=== PATIENT | female | born 1955 | race Caucasian/White ===

== ENCOUNTER 2017-07-04 19:38 | Observation (INO) | payer MEDICARE ==
[~2017-07-04] VITALS: Ht 152.4 cm; Wt 80.9 kg
[2017-07-04 19:39] VITALS: BP 186/122
--- OUTSIDE RECORDS SUMMARY | 2017-07-04 19:58 | External Medical Summary Rpt | CCD ---
Author Author , ADEEL Organization ADEEL Address Unknown Phone [email or web address] Immunization Name Date Rout CVX Reac Dose Comm Prov Is Faci e tion ent ider Refu lity Give sed n Infl 11-0 Intr 0.5 Hist D049 No D049 uenz 1-20 amus mL oric 01 01 a 17 cula al Quad r Info rmat W/Pr ion es - Sour ce Unsp ecif ied Tdap 09-0 Intr 115 0.5 Hist MT No MT , 7-20 amus mL oric Adso 14 cula al rbed r Info rmat ion - Sour ce Unsp ecif ied
--- OUTSIDE RECORDS SUMMARY | 2017-07-04 19:58 | External Medical Summary Rpt | CCD ---
Author Author , WOJCIECH JEFFREY Address Unknown Phone Purpose Continuity of Care Document - through 2016
--- OUTSIDE RECORDS SUMMARY | 2017-07-04 19:58 | External Medical Summary Rpt | CCD ---
Author Author , WOJCIECH JEFFREY Address Unknown Phone [email or web address] Purpose Continuity of Care Document - through 2016
--- OUTSIDE RECORDS SUMMARY | 2017-07-04 19:58 | External Medical Summary Rpt ---
Author Author WOJCIECH Mckinney, [employer]ECH [employer] Organization [employer] Address Unknown Phone Unavailable
--- OUTSIDE RECORDS SUMMARY | 2017-07-04 19:58 | External Medical Summary Rpt | CCD ---
Author Author [employer]duent Organization Con[employer] Address Unknown Phone Unavailable Purpose Continuity of Care Document - through 2016
--- OUTSIDE RECORDS SUMMARY | 2017-07-04 19:58 | External Medical Summary Rpt | CCD ---
Author Author , ADEEL Organization ADEEL Address Unknown Phone [email or web address] Immunization Name Date Rout CVX Reac Dose Comm Prov Is Faci e tion ent ider Refu lity Give sed n Infl 11-0 Intr 0.5 Hist D049 No D049 uenz 1-20 amus mL oric 01 01 a 17 cula al Quad r Info rmat W/Pr ion es - Sour ce Unsp ecif ied Tdap 09-0 Intr 115 0.5 Hist HI No HI , 7-20 amus mL oric Adso 14 cula al rbed r Info rmat ion - Sour ce Unsp ecif ied
[2017-07-04 20:02] LABS: LYMPH # 3.7 K/mm3 (0.7-4.5); LYMPH % 31.1 % (10-50.0)
[2017-07-04 20:06] LABS: HEMOGLOBIN 16.4 g/dL (12.2-16.2)
--- NOTE | 2017-07-04 20:31 | Emergency Room Report ---
See Addendum History of Present Illness Time Seen by 1999 Presenting Problem in Triage Pt arrived:Wheelchair Presenting Problem:ABD PAIN SINCE SUNDAY. PT IS TEARFUL AND GUARDING HER UPPER RIGHT QUAD. 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 N Clinical Suspician of Infection? N Mental Status: 1 - Regular (Normal Baseline) Sepsis Risk:Low Sepsis Risk Have you (or family members/close friends) recently traveled outside the [place]? N If Yes, where/when: Have you had exposure to infectious disease within the past month? N TB? Other? Specify: Source patient, RN notes reviewed, family, old records Exam Limitations no limitations Comment onset of rt upper abd pain Cardiac Chest Pain Chest pain indicative of cardiac No Timing/Duration this evening Severity moderate ALLERGIES Coded Allergies: oxycodone (From OXYCONTIN) (07/04/17) Home Medications Reported Medications Oxycodone 10 Mg\[id number] (Oxycodone-Acetaminophen 10-325) 1 TAB PO Q4HP PRN CHRONIC PAIN Clonazepam (Clonazepam 0.5MG) 0.5 MG PO QHS TIZANIDINE HCL (Tizanidine) 4 MG NG QHS Olmesartan Medoxomil (Benicar) 20 MG PO DAILY Celecoxib (Celebrex 50MG) 60 MG PO BID Metoprolol Succinate Xl (Metoprolol ER 25MG) 25 MG PO DAILY HYDROXYZINE HCL (Hydroxyzine) 10 MG PO DAILY History Medical History General CAD? No Angina: No [place]: No Hypertension? Yes Hyperlipidemia? Yes CHF? No DVT? No PE? No COPD? No Asthma? No Anemia? No GERD? Yes Gastric ulcers? No GI Bleed? No Hernia? No Thyroid Problems? No CVA? No Seizures? No Diabetes? No Renal Insuffiency? No End Stage Renal Disease? No UTI? No Stones? No GB Disease: No Arthritis? Yes Migraines? No MRSA? No TB? No Cancer? Yes Site: SKIN CA Immunization Hx DT/Tetanus NOT SURE Pneumonia NEVER Surgical Hx Previous Surgery?Y TUBAL ABLASION OVARIAN CYSTS Family History Family Hx Diabetes Yes CAD Yes Hypertension Yes Hyperlipidemia Yes Cancer Yes TB No Social History Smoking Hx Smoker: Smoker, Status Unknown Tobacco: No Type Cigarettes Alcohol Alcohol: No Drugs none Review of Systems All Other Systems Reviewed and Negative Constitutional denies fever Eyes denies drainage ENT denies: ear discharge, nose pain, epistaxis. Respiratory denies cough, denies shortness of breath, denies wheezing Cardiovascular denies chest pain, denies palpitations, denies syncope Gastrointestinal see HPI, abdominal pain, nausea, denies vomiting Genitourinary denies: dysuria, frequency, hesitancy, hematuria. Musculoskeletal denies back pain, denies joint pain, denies neck pain Skin denies rash Psychiatric/Neurological denies seizure Physical Exam Vital Signs Vital Signs Date Time Temp Pulse Resp B/P Pulse O2 O2 Flow FiO2 Ox Delivery Rate 07/04 2235 107 20 165/81 94 07/04 2136 98.1 105 16 175/84 94 07/04 2045 103 22 154/62 92 07/04 2043 16 07/044 20 07/04 1939 98.0 121 18 186/122 96 - WBC >12,000 or <4,000 or 10% bands? 2 or more SIRS Criteria Met? B/P:154/62 MAP:143 Creatinine >2.0? UA output<0.5ml/kg/hr for 2 hrs? Platelet count >100,000? Lactate >2.0mmol/1? INR >1.2 or PTT > than 60 sec? Evidence of Organ Dysfunction? Provider documented clinical suspician of infection? N Sepsis Criteria Count: 1 Sepsis Risk: Low Sepsis Risk General Appearance no apparent distress Eye Exam - bilateral eye PERRL, bilateral eye EOMI Ear, Nose, Throat normal ENT inspection Neck supple Respiratory Status No: respiratory distress. Lung Sounds bilateral: lungs clear. 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 No Results/Orders Laboratory Tests 07/04/172107: Urine Color YELLOW, Urine Appearance CLEAR, Urine pH 5.5, Ur Specific [place] >= 1.030, Urine Protein NEGATIVE, Urine Ketones NEGATIVE, Urine Blood TRACE-LYSED, Urine Nitrate NEGATIVE, Urine Bilirubin NEGATIVE, Urine Urobilinogen 0.2, Ur Leukocyte Esterase NEGATIVE, Urine RBC OCC, Urine WBC 5-10, Ur Squamous Epith Cells 20-50, Urine Bacteria 2+, Hyaline Casts 20-50, Urine Glucose NEGATIVE 07/04/171944: Sodium 138, Potassium 3.9, Chloride 102, Carbon Dioxide 27, BUN 17, Creatinine 1.1 H, Estimated Creat Clear 59, Estimated GFR (MDRD) 50 L, Glucose 116 H, Calcium 9.7, Total Bilirubin 1.5 H, AST 46 H, ALT 49, Alkaline Phosphatase 154 H, Total Protein 8.5 H, Albumin 4.3, Globulin 4.2 H, Albumin/Globulin Ratio 1.0 L, Amylase 49, Lipase 145, WBC 11.8 H, RBC 5.81 H, Hgb 16.4 H, Hct 49.7 H, MCV 85.5, RDW 13.4, Plt Count 300, MPV 7.0 L, Gran % 59.9, Gran # 7.1, Lymphocytes % 31.1, Monocytes % 5.5, Eosinophils % 2.9, Basophils % 0.6, Lymphocytes # 3.7, Monocytes # 0.7, Eosinophils # 0.3, Basophils # 0.1, PUBS MCHC 32.7, MCH 28.0 Current Medication Orders Sig/Jr Start time Last Medication Dose Route Stop Time Status Admin Hydromorphone HCl 1 MG ONCE ONE 07/04 2045 DCr 07/04 IV 07/04 Promethazine HCl 12.5 MG ONCE ONE 07/04 2045 DC 07/04 IV 07/04 Sodium Chloride 25 ML ONCE ONE 07/04 2045 DC 07/04 IV 07/04 Promethazine HCl 0 .STK-MED ONE 07/04 2038 DC .ROUTE Sodium Chloride 25 ML .STK-MED ONE 07/04 2038 DC IV Hydromorphone HCl 0 .STK-MED ONE 07/04 2037 DCr .ROUTE Ketorolac 30 MG ONCE ONE 07/04 2000 DC 07/04 Tromethamine IV 07/04 Ondansetron HCl 4 MG ONCE ONE 07/04 2000 DC 07/04 IV 07/04 Sodium Chloride 10 ML PRN PRN 07/04 2000 AC IV 07/05 1949 Sodium Chloride 1,000 ML .Q1H1M 07/04 2000 DC 07/04 IV 07/04 Sodium Chloride 10 ML PRN PRN 07/04 2000 AC IV 07/05 1950 Ketorolac 0 .STK-MED ONE 07/04 1950 DC Tromethamine .ROUTE Ondansetron HCl 0 .STK-MED ONE 07/04 1949 DC .ROUTE Sodium Chloride 1,000 ML .STK-MED ONE 07/04 1949 DC IV Orders Procedure Date/time Status DIET-NOTHING BY MOUTH 07/05 B Active Decision to admit 07/04 2233 Active CULTURE, URINE 07/[address] ABD & PELVIS W/O CONTRAST 07/[address] ABD/PELVIS REQ 07/04 1952 Complete IV SALINE LOCK 07/04 1952 Active URINALYSIS/COMPLETE 07/04 1952 Complete LIPASE 07/04 1952 Complete COMPLETE METABOLIC PANEL 07/04 1952 Complete CBC WITH AUTO DIFF 07/04 1952 Complete AMYLASE 07/04 1952 Complete XRAY/CT/US XRAY/CT/US CT abdomen, pelvis CT interpretation by discussed w/radiologist Time results known: 2123 CT Results abnormal (see report) Departure Departure Time of Disposition 2123 Disposition Still a Patient Clinical Impression Primary Impression: Abdominal pain Qualifiers: Abdominal location: right upper quadrant Qualified Code: R10.11 - Right upper quadrant pain Condition STABLE Referrals Crow Samuels MD (Family) discussed with dr aide LIZARRAGA Critical Care Critical Care No at 2242
[2017-07-04] MEDS ORDERED: PERCOCET 10 MG1 EACH PO (20:35)
[2017-07-04] MEDS ORDERED: CLONAZEPAM0.5 M1 PO (20:36)
[2017-07-04] MEDS ORDERED: TIZANIDINE4 MG NG (20:37)
[2017-07-04] MEDS ORDERED: BENICAR20 MG PO (20:38)
[2017-07-04] MEDS ORDERED: CELEBREX50 MG PO (20:39)
[2017-07-04] MEDS ORDERED: METOPROLOL SUCC25 M1 PO (20:40)
[2017-07-04] MEDS ORDERED: Hydroxyzine10 MG PO (20:41)
[2017-07-04 21:15] LABS: URINE BILIRUBIN - DIPSTICK NEGATIVE (NEG); URINE BLOOD TRACE-LYSED (NEG)
[2017-07-04 21:30] LABS: URINE SQUAMOUS CELLS 20-50 #/hpf (0-5)
--- OUTSIDE RECORDS SUMMARY | 2017-07-04 22:39 | External Medical Summary Rpt | CCD ---
Author Author , WOJCIECH Organization WOJCIECH Address Unknown Phone [email or web address] Purpose Continuity of Care Document - 07-04-2017 through 2016 Results Labs Lab Lab Date Result Refere Interp Status Commen Order Detail nces retati t Range on Urinalysis with microscopy (07-04-2017 21:08) Urine 5 - 10 O complet leukocy 017 wbc/hpf ed romana 21:08 count (number /volume ) Urine 0.2 0.2 NEG complet urobili 017 L ed nogen 21:08 E.U./dL detecti on by test str [place] 20-50 0-5 complet s 017 20-50 L ed epithel 21:08 #/hpf ial cells detecti on in u Urine > = 1.005-1 complet specifi 017 1.030 .030 ed c 21:08 gravity measure ment Erythro OCC OCC 0 complet cytes 017 L ed detecti 21:08 rbc/hpf on in urine sedimen t Urine = NEG complet protein 017 NEGATIV ed 21:08 E mg/dL measure ment by automat ed t Urine = 5.5 5.0-8.5 complet pH 017 ed 21:08 Urine NEGATIV NEG complet nitrite 017 E ed 21:08 NEGATIV detecti E L on by test strip Mucus NEGATIV NEG complet detecti 017 E ed on in 21:08 NEGATIV urine E L sedimen t by lig Urine NEGATIV NEG complet ketones 017 E ed 21:08 NEGATIV detecti E L on by mg/dL automat ed romana Hyaline 20-50 NONE complet casts 017 20-50 L ed detecti 21:08 #/lpf on in urine sedimen Glucose = NEG complet ur 017 NEGATIV ed test 21:08 E strip Urine YELLOW YELLOW complet color 017 YELLOW ed 21:08 L Urine NEGATIV NEG complet total 017 E ed bilirub 21:08 NEGATIV in E L detecti on by test Bacteri 2+ 2+ L O complet a 017 ed detecti 21:08 on in urine sedimen t by Urine CLEAR CLEAR complet appeara 017 CLEAR L ed nce 21:08 determi nation Urine TRACE-L NEG complet blood 017 YSED ed detecti 21:08 TRACE-L on YSED L Lipase measurement (07-04-2017 19:45) Lipase = 145 73-393 complet measure 017 U/L ed ment 19:45 Comprehensive metabolic panel (07-04-2017 19:45) Protein = 8.5 6.4-8.2 complet total 017 gm/dL ed ser/chon 19:45 s ALT = 49 12-78 complet (SGPT) 017 U/L ed ser/chon 19:45 s Serum = 46 15-37 complet or 017 U/L ed plasma 19:45 asparta te aminotr ansfera Serum = 138 136-145 complet sodium 017 mmoL/L ed measure 19:45 ment Serum = 3.9 3.5-5.1 complet potassi 017 mmoL/L ed um 19:45 measure ment Serum = 116 74-106 complet or 017 mg/dL ed plasma 19:45 glucose measure ment (mas Serum = 4.2 1.3-3.2 complet globuli 017 gm/dL ed n 19:45 measure ment (mass/v olume) Estimat = 50 59- complet ed 017 ML/MIN ed glomeru 19:45 lar filtrat ion rate (GF Comment: REFERENCE RANGE: >60 ML/MIN/1.73 SQUARE METERS Comment: If this patient is -Latvian, then multiply the Comment: result by 1.210. Estimat = 59 50-200 complet ion of 017 ML/MIN ed creatin 19:45 ine renal clearan ce Serum = 1.1 0.55-1. complet or 017 mg/dL 02 ed plasma 19:45 creatin ine measure ment ( Carbon = 27 21.0-32 complet dioxide 017 mmoL/L .0 ed 19:45 measure ment Serum = 102 98-107 complet or 017 mmoL/L ed plasma 19:45 chlorid e measure ment (mo Serum = 9.7 8.5-10. complet or 017 mg/dL 1 ed plasma 19:45 calcium measure ment (mas Serum = 17 7-18 complet or 017 mg/dL ed plasma 19:45 urea nitroge n measure men Serum = 1.5 0.2-1.0 complet or 017 mg/dL ed plasma 19:45 total bilirub in measure m Serum = 154 46-116 complet or 017 U/L ed plasma 19:45 alkalin e phospha tase john Serum = 4.3 3.4-5.0 complet or 017 gm/dL ed plasma 19:45 albumin measure ment (mas Serum = 1.0 1.1-1.8 complet or 017 ed plasma 19:45 albumin /globul in mass ra Amylase ser/plas (07-04-2017 19:45) Amylase = 49 25-115 complet 017 U/L ed ser/chon 19:45 s CBC w auto diff (07-04-2017 19:45) Blood = 11.8 4.8-10. complet leukocy 017 K/MM3 8 ed romana 19:45 count (number /volume ) Automat = 13.4 11.5-17 complet ed 017 % .5 ed erythro 19:45 cyte distrib ution width Red = 5.81 4.2-5.4 complet blood 017 M/mm3 ed cell 19:45 count Blood = 300 142-424 complet platele 017 K/mm3 ed t count 19:45 Automat = 7.0 7.4-10. complet ed 017 fl 4 ed blood 19:45 platele t mean volume john [place] % = 5.5 % 1.7-9.3 complet 017 ed 19:45 Absolut = 0.7 0.1-1.0 complet e 017 K/mm3 ed monocyt 19:45 e count Automat = 85.5 82.2-97 complet ed 017 fl .8 ed erythro 19:45 cyte mean corpusc ular v Automat = 32.7 31.8-35 complet ed 017 g/dl .4 ed erythro 19:45 cyte mean corpusc ular h Mean = 28.0 27-31.2 complet corpusc 017 pg ed ular 19:45 hemoglo bin (MCH) determ Lymphoc = 31.1 10-50.0 complet yte 017 % ed count, 19:45 blood, automat ed Absolut = 3.7 0.7-4.5 complet e 017 K/mm3 ed lymphoc 19:45 yte count Blood = 16.4 12.2-16 complet hemoglo 017 g/dL .2 ed bin 19:45 measure ment (mass/v olum Blood = 49.7 37.0-47 complet hematoc 017 % .0 ed rit 19:45 (volume fractio n) Granulo = 59.9 37.0-80 complet cyte 017 % .0 ed percent 19:45 age Blood = 7.1 1.8-7.8 complet granulo 017 K/mm3 ed cytes 19:45 automat ed count (numb Automat = 2.9 % 0.1-12. complet ed 017 0 ed blood 19:45 eosinop hils/10 0 leukocy t Automat = 0.3 0.0-0.4 complet ed 017 K/mm3 ed blood 19:45 eosinop hil count Baso % = 0.6 % 0.1-2.0 complet 017 ed 19:45 Automat = 0.1 0-0.2 complet ed 017 K/MM3 ed blood 19:45 basophi l count (count/ vo
--- OUTSIDE RECORDS SUMMARY | 2017-07-04 22:39 | External Medical Summary Rpt | CCD ---
Author Author , WOJCIECH Organization WO[employer] Address Unknown Phone [email or web address] Purpose Continuity of Care Document - 07-04-2017 [...] SQUARE METERS Comment: If this patient is -[place]ian, then multiply the Comment: result by 1.210. [...] blood 19:45 platele t mean volume john [place] % = 5.5 % 1.7-9.3 complet 017 [...]
--- OUTSIDE RECORDS SUMMARY | 2017-07-04 22:39 | External Medical Summary Rpt | CCD ---
Author Author , ADEEL Organization ADEEL Address Unknown Phone [email or web address] Immunization Name Date Rout CVX Reac Dose Comm Prov Is Faci e tion ent ider Refu lity Give sed n Infl 11-0 Intr 0.5 Hist D049 No D049 uenz 1-20 amus mL oric 01 01 a 17 cula al Quad r Info rmat W/Pr ion es - Sour ce Unsp ecif ied Tdap 09-0 Intr 115 0.5 Hist CO No CO , 7-20 amus mL oric Adso 14 cula al rbed r Info rmat ion - Sour ce Unsp ecif ied
--- OUTSIDE RECORDS SUMMARY | 2017-07-04 22:39 | External Medical Summary Rpt | CCD ---
Author Author , ADEEL Organization ADEEL Address Unknown Phone [email or web address] Immunization Name Date Rout CVX Reac Dose Comm Prov Is Faci e tion ent ider Refu lity Give sed n Infl 11-0 Intr 0.5 Hist D049 No D049 uenz 1-20 amus mL oric 01 01 a 17 cula al Quad r Info rmat W/Pr ion es - Sour ce Unsp ecif ied Tdap 09-0 Intr 115 0.5 Hist MD No MD , 7-20 amus mL oric Adso 14 cula al rbed r Info rmat ion - Sour ce Unsp ecif ied
--- OUTSIDE RECORDS SUMMARY | 2017-07-04 22:40 | External Medical Summary Rpt ---
Author Author WOJCIECH Mckinney, [employer]ECH [employer] Organization [employer] Address Unknown Phone Unavailable Results Amylase [Enzymatic activity/volume] in Serum or Plasma Observa Value Referen Units Interpr Notes Date tion ce etation Range Amylase 25 - 115 U/L Normal No Jul 04 [Enzymati informati 2017 7:45 c on in PM activity/ source volume] data in Serum or Plasma Comprehensive metabolic 2000 panel in Serum or Plasma Observa Value Referen Units Interpr Notes Date tion ce etation Range Albumin/G 1.1 - 1.8 No Low No Jul 04 lobulin informati informati 2016 7:45 [Mass on in on in PM ratio] in source source Serum or data data Plasma Albumin 3.4 - 5.0 gm/dL Normal No Jul 04 [Mass/vol informati 2016 7:45 ume] in on in PM Serum or source Plasma data Alkaline 46 - 116 U/L High No Jul 04 phosphata informati 2016 7:45 se on in PM [Enzymati source c data activity/ volume] in Serum or Plasma Bilirubin 0.2 - 1.0 mg/dL High No Jul 04 .total informati 2016 7:45 [Mass/vol on in PM ume] in source Serum or data Plasma Urea 7 - 18 mg/dL Normal No Jul 04 nitrogen informati 2016 7:45 [Mass/vol on in PM ume] in source Serum or data Plasma Calcium 8.5 - mg/dL Normal No Jul 04 [Mass/vol 10.1 informati 2016 7:45 ume] in on in PM Serum or source Plasma data Chloride 98 - 107 mmoL/L Normal No Jul 04 [Moles/vo informati 2016 7:45 lume] in on in PM Serum or source Plasma data Carbon 21.0 - mmoL/L Normal No Jul 04 dioxide, 32.0 informati 2017 7:45 total on in PM [Moles/vo source lume] in data Serum or Plasma Creatinin 0.55 - mg/dL High No Jul 04 e 1.02 informati 2016 7:45 [Mass/vol on in PM ume] in source Serum or data Plasma Creatinin 50 - 200 ML/MIN Normal No Jul 04 e renal informati 2016 7:45 clearance on in PM source predicted data by Cockcroft -Gault formula Estimated 59- ML/MIN Low REFERENCE Jul 04 RANGE: 2016 7:45 glomerula >60 PM r ML/MIN/1. filtratio 73 SQUARE n rate METERSIf (GF this patient is -A merican, then multiply theresult by 1.210. Globulin 1.3 - 3.2 gm/dL High No Jul 04 [Mass/vol informati 2016 7:45 ume] in on in PM Serum source data Glucose 74 - 106 mg/dL High No Jul 04 [Mass/vol informati 2016 7:45 ume] in on in PM Serum or source Plasma data Potassium 3.5 - 5.1 mmoL/L Normal No Jul 04 inform2016 7:45 [Moles/vo on in PM lume] in source Serum or data Plasma Sodium 136 - 145 mmoL/L Normal Jul 04 [Moles/vo ati 2016 7:45 lume] in on in PM Serum or source Plasma data Aspartate 15 - 37 U/L High No Jul 04 informati 2016 7:45 aminotran on in PM sferase source [Enzymati data c activity/ volume] in Serum or Plasma Alanine 12 - 78 U/L Normal No Jul 04 aminotran 2016 7:45 sferase on in PM [Enzymati source c data activity/ volume] in Serum or Plasma Protein 6.4 - 8.2 gm/dL High Jul 04 [Mass/vol informati 2016 7:45 ume] in on in PM Serum or source Plasma data Lipase [Enzymatic activity/volume] in Serum or Plasma Observa Value Referen Units Interpr Notes Date tion ce etation Range Lipase 73 - 393 U/L Normal No Jul 04 [Enzymati informati 2016 7:45 c on in PM activity/ source volume] data in Serum or Plasma CBC W Auto Differential panel in Blood Observa Value Referen Units Interpr Notes Date tion ce etation Range Basophils 0 - 0.2 K/MM3 Normal No Jul 04 inform2016 7:45 [#/volume on in PM ] in source Blood by data Automated count Basophils 0.1 - 2.0 % Normal No Nov 8 /100 informati 2016 7:45 leukocyte on in PM s in source Blood by data Automated count Eosinophi 0.0 - 0.4 K/mm3 Normal No Jun 8 ls informati 2016 7:45 [#/volume on in PM ] in source Blood by data Automated count Eosinophi 0.1 - % Normal No Jul 04 ls/100 12.0 informati 2016 7:45 leukocyte on in PM s in source Blood by data Automated count Granulocy 1.8 - 7.8 K/mm3 Normal No Jun 8 romana informati 2016 7:45 [#/volume on in PM ] in source Blood by data Automated count Granulocy 37.0 - % Normal No Jul 04 romana/100 80.0 informati 2016 7:45 leukocyte on in PM s in source Blood by data Automated count Hematocri 37.0 - % High No Jul 04 t [Volume 47.0 informati 2016 7:45 on in PM Fraction] source of Blood data Hemoglobi 12.2 - g/dL High No Jul 04 n 16.2 informati 2016 7:45 [Mass/vol on in PM ume] in source Blood data Lymphocyt 0.7 - 4.5 K/mm3 Normal No Jul 04 es informati 2016 7:45 [#/volume on in PM ] in source Unspecifi data ed specimen by Automated count Lymphocyt 10 - 50.0 % Normal No Jul 04 es 2016 7:45 [#/volume on in PM ] in source Unspecifi data ed specimen by Automated count Erythrocy 27 - 31.2 pg Normal No Jul 04 te mean informati 2016 7:45 corpuscul on in PM ar source hemoglobi data n [Entitic mass] Erythrocy 31.8 - g/dl Normal No Jul 04 te mean 35.4 informati 2016 7:45 corpuscul on in PM ar source hemoglobi data n concentra tion [Mass/vol ume] by Automated count Erythrocy 82.2 - fl Normal No Jul 04 te mean 97.8 informati 2016 7:45 corpuscul on in PM ar volume source [Entitic data volume] by Automated count Monocytes 0.1 - 1.0 K/mm3 Normal No Jul 04 informati 2016 7:45 [#/volume on in PM ] in source Blood by data Automated count Monocytes 1.7 - 9.3 % Normal No Jul 04 informati 2017 7:45 leukocyte on in PM s in source Blood by data Automated count Platelet 7.4 - fl Low Jul 04 mean 10.4 informati 2016 7:45 volume on in PM [Entitic source volume] data in Blood by Automated count Platelets 142 - 424 K/mm3 Normal No Jul 04 informati 2016 7:45 [#/volume on in PM ] in source Blood data Erythrocy 4.2 - 5.4 M/mm3 High No Jul 04 romana informati 2016 7:45 [#/volume on in PM ] in source Amniotic data fluid Erythrocy 11.5 - % Normal Jul 04 te 17.5 informati 2016 7:45 distribut on in PM ion width source [Entitic data volume] by Automated count Leukocyte 4.8 - K/MM3 High No Jul 04 s 10.8 informati 2016 7:45 [#/volume on in PM ] in source Blood data
--- OUTSIDE RECORDS SUMMARY | 2017-07-04 22:40 | External Medical Summary Rpt ---
Author Author WOJCIECH Mckinney, WOJCICEH [employer] Organization [employer] Address Unknown Phone [...]
[2017-07-04 23:16] VITALS: BP 159/78
[2017-07-05 04:17] VITALS: BP 140/78
--- NOTE | 2017-07-05 05:34 | RADIOLOGY REPORT PS360 ---
CT ABD PELVIS W/O CONTRAST CLINICAL INDICATION: Right upper quadrant abdominal pain ABD PAIN ORDERING PHYSICIAN: Crow Samuels MD PATIENT AGE: 62 years COMPARISON: 04/25/2008 TECHNIQUE: Axial images obtained with sagittal and coronal reformats. PROCEDURE: Oral Contrast: None IV Contrast: None . FINDINGS: There is patchy density in the left lower lobe and inferior lingula consistent with atelectasis and/or infiltrate. Coronary artery calcifications are present Prior cholecystectomy. No biliary dilatation. Spleen, adrenal glands and pancreas have an unremarkable unenhanced appearance. 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 No obstructing renal or ureteral calculi. No hydronephrosis. There is a 2 x 1.6 cm exophytic soft tissue density projecting off of the superior lateral aspect of the left kidney. This is somewhat more dense somewhat one would expect for simple cyst. Ultrasound suggested to determine cystic or solid nature. There are a few small retroperitoneal lymph nodes. Tiny umbilical hernia containing fat. Unremarkable appendix. Mild diverticulosis of the descending and sigmoid colon without evidence of diverticulitis. No intestinal obstruction or free air. No acute bony anomalies. No pelvic mass or focal inflammatory change. Urinary bladder has an unremarkable appearance. IMPRESSION: 1. 2 cm isodense mass in the lateral aspect of the left kidney more dense than what one would expect for simple cyst. Differential diagnosis includes a complex cyst or neoplasm. Suggest ultrasound for further evaluation. 2. Atelectasis and/or infiltrate within the lingula and left lower lobe 3. Colonic diverticulosis without diverticulitis. 4. Otherwise negative CT abdomen pelvis without contrast
[2017-07-05 07:23] LABS: LYMPH # 3.1 K/mm3 (0.7-4.5); LYMPH % 30.7 % (10-50.0)
[2017-07-05 07:25] LABS: HEMOGLOBIN 13.7 g/dL (12.2-16.2)
--- NOTE | 2017-07-05 07:49 | PHARMACY CLINIC NOTE ---
Patient Demographics Patient Demographics Admission date: 07/04/17 Date: 07/05/17 Time: 0749 Allergies Coded Allergies: oxycodone (From OXYCONTIN) (07/04/17) HEIGHT- FT: 5 IN: 0.00 K.658 VTE General Information Labs: Laboratory Tests 07/05 1945 Hematology Hgb (12.2 - 16.2 g/dL) 13.7 16.4 H Hct (37.0 - 47.0 %) 41.9 49.7 H Plt Count (142 - 424 K/mm3) 220 300 Disclaimer The following section includes nursing documentation that has been pulled in for pharmacy review. Patient's VTE score: 0 Patient's VTE Risk: VERY LOW RISK Clinical trial participant? No VTE prophylaxis NQF [id number] VTE prophylaxis ordered? Yes Type of prophylaxis/treatment: ALISSA at 0749
[2017-07-05] MEDS ORDERED: HYDROXYZINE HCL25 M1 PO (08:09)
[2017-07-05] MEDS ORDERED: DULOXETINE60 MG PO (08:10)
--- NOTE | 2017-07-05 08:54 | HISTORY AND PHYSICAL REPORT ---
See Addendum History and Physical (FCA) Date of admission: 07/04/17 Chief complaint: abdominal pain History: History of Present Illness: Mr. Mendieta is a 62-year-old female with a history of hypertension, hyperlipidemia, and arthritis. She states approximately 3 days ago she began having RIGHT upper quadrant abdominal pain. The pain has continued to worsen over the past few days and became so bad last night that she presented to the emergency room. She was evaluated in the emergency room and a CT scan revealed nothing acute on the RIGHT side of the abdomen. She did have a mass on the LEFT kidney. She was given pain medication in the emergency room, but her pain was not controlled. She was therefore admitted with intractable pain for further evaluation and treatment. Past Medical History: Medical History: CAD? No Angina: No NE: No Hypertension? Yes Hyperlipidemia? Yes CHF? No DVT? No PE? No COPD? No Asthma? No Anemia? No GERD? Yes Gastric ulcers? No GI Bleed? No Hernia? No Thyroid Problems? No CVA? No Seizures? No Diabetes? No Renal Insuffiency? No UTI? No Stones? No GB Disease: No Arthritis? Yes Migraines? No MRSA? No TB? No Cancer? Yes Site: SKIN CA Surgical history: Previous Surgery?Y TUBAL ABLASION OVARIAN CYSTS GALL BLADDER Medications: Reported Medications HYDROXYZINE HCL (Hydroxyzine HCl) 25 MG PO TID #90 DULOXETINE HCL (Duloxetine) 60 MG PO BID #60 Oxycodone 10 Mg\[id number] (Oxycodone-Acetaminophen 10-325) 1 TAB PO Q4HP PRN CHRONIC PAIN Clonazepam (Clonazepam 0.5MG) 0.5 MG PO QHS TIZANIDINE HCL (Tizanidine) 4 MG NG QHS Olmesartan Medoxomil (Benicar) 20 MG PO DAILY Celecoxib (Celebrex 50MG) 60 MG PO BID Metoprolol Succinate Xl (Metoprolol ER 25MG) 25 MG PO DAILY Allergies: Coded Allergies: oxycodone (From OXYCONTIN) (07/04/17) Family History: Family history: Postive for: CAD, DM, HTN. Social History: Smoking Hx Tobacco: No Smoker: Never Smoker Type: N/A Packs/day: N/A Are you exposed to second hand No Alcohol: Alcohol: No Hx of Drug Use: Drug Use? No Review of Systems: Constitutional Positive for: fatigue, lethargy, malaise, weak. ENT No: nasal congestion, sore throat. Cardiovascular No: chest pain, edema, palpitations. Respiratory No: shortness of air, productive cough (sputum), wheezing. GI Positive for: abdominal pain (RUQ). No: constipation, diarrhea, nausea, vomitting. (female) No: frequency, hematuria. Neurological Positive for: headache, weakness. No: dizziness, syncope. Musculoskeletal No: extremity pain, joint pain, myalgias. Physical Exam: Vital signs: 1ST Vital Signs Result Date Time Pulse Ox 96 07/04 1939 B/P 186/122 07/04 1939 Temp 98.0 07/04 1939 Pulse 121 07/04 1939 Resp 18 07/04 1939 O2 Delivery ROOM AIR 07/04 2316 Exam: General appearance: alert, awake, appears to be in pain Eyes: EOM's w/normal ROM, PERRLA ENT: mucous membranes moist, nose normal, pharynx normal Neck: non-tender, full range of motion, supple Cardiovascular: regular rate & rhythm Respiratory: clear to auscultation ABD: non-distended, normal bowel sounds, no rebound, soft, ttp and guarding in the RUQ Extremities: no peripheral edema Musculoskeletal: equal muscle strength, motor intact, sensation intact Skin: normal color Neuro: normal mood/affect, oriented, speech clear Lab data: Labs: Laboratory Tests 07/05/17 0612: Sodium 140, Potassium 4.0, Chloride 108 H, Carbon Dioxide 25, BUN 15, Creatinine 0.8, Estimated Creat Clear 86, Estimated GFR (MDRD) 72, Glucose 102, Calcium 8.8, WBC 10.1, RBC 4.83, Hgb 13.7, Hct 41.9, MCV 86.8, RDW 13.4, Plt Count 220, MPV 7.3 L, Gran % 59.5, Gran # 6.0, Lymphocytes % 30.7, Monocytes % 6.4, Eosinophils % 2.8, Basophils % 0.6, Lymphocytes # 3.1, Monocytes # 0.6, Eosinophils # 0.3, Basophils # 0.1, PUBS MCHC 32.9, MCH 28.5 07/04/172107: Urine Color YELLOW, Urine Appearance CLEAR, Urine pH 5.5, Ur Specific [place] >= 1.030, Urine Protein NEGATIVE, Urine Ketones NEGATIVE, Urine Blood TRACE-LYSED, Urine Nitrate NEGATIVE, Urine Bilirubin NEGATIVE, Urine Urobilinogen 0.2, Ur Leukocyte Esterase NEGATIVE, Urine RBC OCC, Urine WBC 5-10, Ur Squamous Epith Cells 20-50, Urine Bacteria 2+, Hyaline Casts 20-50, Urine Glucose NEGATIVE 07/04/171944: Sodium 138, Potassium 3.9, Chloride 102, Carbon Dioxide 27, BUN 17, Creatinine 1.1 H, Estimated Creat Clear 59, Estimated GFR (MDRD) 50 L, Glucose 116 H, Calcium 9.7, Total Bilirubin 1.5 H, AST 46 H, ALT 49, Alkaline Phosphatase 154 H, Total Protein 8.5 H, Albumin 4.3, Globulin 4.2 H, Albumin/Globulin Ratio 1.0 L, Amylase 49, Lipase 145, WBC 11.8 H, RBC 5.81 H, Hgb 16.4 H, Hct 49.7 H, MCV 85.5, RDW 13.4, Plt Count 300, MPV 7.0 L, Gran % 59.9, Gran # 7.1, Lymphocytes % 31.1, Monocytes % 5.5, Eosinophils % 2.9, Basophils % 0.6, Lymphocytes # 3.7, Monocytes # 0.7, Eosinophils # 0.3, Basophils # 0.1, PUBS MCHC 32.7, MCH 28.0 Microbiology 07/04 2108 URINE CC: Urine Culture - RES Radiology results: Results: CT abd/pelvis 1. 2 cm isodense mass in the lateral aspect of the left kidney more dense than what one would expect for simple cyst. Differential diagnosis includes a complex cyst or neoplasm. Suggest ultrasound for further evaluation. 2. Atelectasis and/or infiltrate within the lingula and left lower lobe 3. Colonic diverticulosis without diverticulitis. 4. Otherwise negative CT abdomen pelvis without contrast Diagnosis(es): 1. Abdominal pain Status: Acute 2. Hyperbilirubinemia Status: Acute 3. Kidney mass Status: Acute 4. Hypertension 5. Hyperlipidemia 6. Chronic pain Plan: No findings on CT to explain abdominal pain. Her bilirubin was elevated. Will recheck this today. Amylase and lipase were normal. There was a mass on the left kidney, however she has no pain on that side. Will discuss a possible U/S of the mass with Dr. Samuels. Will discuss further testing with Dr. Samuels. at [phone] at [phone]
[2017-07-05 11:00] VITALS: BP 143/73
--- NOTE | 2017-07-05 15:24 | CONSULT NOTE-UROLOGY ---
Urology Initial Visit Date of Visit: 07/05/17 HPI/Chief Complaint: Referring provider: 62/F Presenting problem: Length of time pt has had problem: Person attending patient for this visit: Patient is a 62-year-old white female referred from Dr. Samuels for a left-sided upper pole renal lesion. Patient was admitted to the hospital with abdominal pain primarily right-sided. CT scan showed a 2 cm LEFT upper pole renal mass. Contrast study was not obtained. CT scan was reviewed and the mass is suspicious and further imaging is recommended. Problem List: 1. Kidney mass Past Medical History Arthritis? Y Diabetes? N Hyperlipedemia? Y Hypertension? Y Heart Problems? [place]? N SOA? Asthma? N Lung Disease? COPD? N TB? N Anemia? N Bleeding Disorder? Cancer? Y Radiation Tx? Hoarsness? Thyroid Problems? N Ulcers? Y Kidney Disease? Liver Disease? Glaucoma? Seizures? N CVA? N Immune Disease? HIV? Trouble w/anesthesia? Abn PSA? Prostate Biopsy? Sexual Dysfunction? Abn Periods? Female Hormone Problems? Uterus/Ovary Problems? ? : Para: Control? Type of BC: Surgical & Social History: Previous Surgery?Y TUBAL ABLASION OVARIAN CYSTS GALL BLADDER Tobacco Use:N Type:N/A Packs/day:N/A If No, have you ever used and quit how long ago? Alcohol Use: Marital Status: Occupation: Family History: Anemia? Arthritis? Asthma? TB?N Cancer?Y Bleeding Troubles? Hyperlipidemia?Y Diabetes?Y COPD? Glaucoma? [place]? Heart Problems? HIV? Hypertension?Y Hoarsness? Immune Disease? Kidney Disease? Liver Disease? Lung Disease? Radiation Tx? Seizures? Shortness of Breath? Ulcers? CVA? Thyroid Problems? Trouble w/Anes? Any men in family ever diagnosed with prostate cancer? Relationship of this person: Current Home Medications Reported Medications DULOXETINE HCL (Duloxetine) 60 MG PO BID #60 Oxycodone 10 Mg\Pptqvullfr332 (Oxycodone-Acetaminophen 10-325) 1 TAB PO Q4HP PRN CHRONIC PAIN Clonazepam (Clonazepam 0.5MG) 0.5 MG PO QHS TIZANIDINE HCL (Tizanidine) 4 MG NG QHS Olmesartan Medoxomil (Benicar) 20 MG PO DAILY Metoprolol Succinate Xl (Metoprolol ER 25MG) 25 MG PO DAILY Allergies: Coded Allergies: oxycodone (From OXYCONTIN) (07/04/17) Review of Systems: Constitutional: Positive for: fatigue. GI: Positive for: GERD. Musculoskeletal: Positive for: lumbar pain. Vital Signs/Wt/Labs Weight -LB:169 OZ:0 K.658 Method:Bed Scales Height -FT:5 IN:0 CM:152.40 BMI:33.0 Vital Signs Date Time Temp Pulse Resp B/P Pulse O2 O2 Flow FiO2 Ox Delivery Rate 07/05 1318 20 07/05 0841 20 07/05 0417 97.8 84 20 140/78 95 ROOM AIR 07/05 0401 20 07/04 2316 104 07/04 231 97.6 104 18 159/78 07/04 231 97.6 104 18 159/78 94 ROOM AIR 07/04 231 93 ROOM AIR 07/04 2302 98.1 103 16 180/77 93 07/04 2235 107 20 165/81 94 07/04 213 98.1 105 16 175/84 94 07/04 2045 103 22 154/62 92 07/04 2043 16 07/04 1954 20 07/04 193 98.0 121 18 186/122 96 Color: Appearance Glucose: Ketone: Bilirubin: Sp.[place]: pH: Protein: Urobilinogen: Blood: Nitrite: Leukocytes: Urine collection method? Residual (ml): Laboratory Tests 07/05/17 0950: Sodium 139, Potassium 4.1, Chloride 108 H, Carbon Dioxide 25, BUN 14, Creatinine 0.8, Estimated Creat Clear 86, Estimated GFR (MDRD) 72, Glucose 89, Calcium 8.7, Total Bilirubin 1.4 H, AST 34, ALT 38, Alkaline Phosphatase 120 H , Total Protein 6.6, Albumin 3.3 L, Globulin 3.3 H, Albumin/Globulin Ratio 1.0 L, Amylase 38, Lipase 115 07/05/17 0612: Sodium 140, Potassium 4.0, Chloride 108 H, Carbon Dioxide 25, BUN 15, Creatinine 0.8, Estimated Creat Clear 86, Estimated GFR (MDRD) 72, Glucose 102, Calcium 8.8, WBC 10.1, RBC 4.83, Hgb 13.7, Hct 41.9, MCV 86.8, RDW 13.4, Plt Count 220, MPV 7.3 L, Gran % 59.5, Gran # 6.0, Lymphocytes % 30.7, Monocytes % 6.4, Eosinophils % 2.8, Basophils % 0.6, Lymphocytes # 3.1, Monocytes # 0.6, Eosinophils # 0.3, Basophils # 0.1, PUBS MCHC 32.9, MCH 28.5 07/04/172107: Urine Color YELLOW, Urine Appearance CLEAR, Urine pH 5.5, Ur Specific [place] >= 1.030, Urine Protein NEGATIVE, Urine Ketones NEGATIVE, Urine Blood TRACE-LYSED, Urine Nitrate NEGATIVE, Urine Bilirubin NEGATIVE, Urine Urobilinogen 0.2, Ur Leukocyte Esterase NEGATIVE, Urine RBC OCC, Urine WBC 5-10, Ur Squamous Epith Cells 20-50, Urine Bacteria 2+, Hyaline Casts 20-50, Urine Glucose NEGATIVE 07/04/171944: Sodium 138, Potassium 3.9, Chloride 102, Carbon Dioxide 27, BUN 17, Creatinine 1.1 H, Estimated Creat Clear 59, Estimated GFR (MDRD) 50 L, Glucose 116 H, Calcium 9.7, Total Bilirubin 1.5 H, AST 46 H, ALT 49, Alkaline Phosphatase 154 H, Total Protein 8.5 H, Albumin 4.3, Globulin 4.2 H, Albumin/Globulin Ratio 1.0 L, Amylase 49, Lipase 145, WBC 11.8 H, RBC 5.81 H, Hgb 16.4 H, Hct 49.7 H, MCV 85.5, RDW 13.4, Plt Count 300, MPV 7.0 L, Gran % 59.9, Gran # 7.1, Lymphocytes % 31.1, Monocytes % 5.5, Eosinophils % 2.9, Basophils % 0.6, Lymphocytes # 3.7, Monocytes # 0.7, Eosinophils # 0.3, Basophils # 0.1, PUBS MCHC 32.7, MCH 28.0 Microbiology Date/Time Procedure - Status Source Growth 07/04 2108 Urine Culture - RES URINE CC Objective: Moderately obese white female in some moderate and episodic right-sided abdominal pain Pupils equal round reactive to light Neck supple symmetric Poor respiratory effort Abdomen soft tender RIGHT lower quadrant Alert and oriented 3 Impression/Plan: 62-year-old white female with a 2 cm LEFT renal lesion. Further imaging is recommended and CT scan with IV contrast is advisable. I discussed with Dr. Samuels and he is going to order this and patient will follow with me next week to discuss the findings. at 1529
--- NOTE | 2017-07-05 15:32 | RADIOLOGY REPORT PS360 ---
US [id number] HISTORY: Left renal mass CT shows left renal lesion ORDERING PHYSICIAN: Crow Samuels MD PATIENT AGE: 62 years COMPARISON: CT scan of 07/04/2017 FINDINGS: RIGHT KIDNEY:Unremarkable. Normal size and echogenicity. No hydronephrosis. 8 x 3 x 5 cm. No hydronephrosis LEFT KIDNEY:8 x 4 x 5 cm.. A 2 cm isodense lesion involves the superior lateral aspect the left kidney. This does not represent a cyst appearing solid in nature. Neoplasm is a consideration. OTHER FINDINGS: No other pertinent findings IMPRESSION: 2 cm left renal lesion does appear solid. Neoplasm is considered.
[2017-07-05 16:19] VITALS: BP 143/73
--- NOTE | 2017-07-05 16:50 | CONSULT NOTE ---
See Addendum Standard Demographics Patient Demo Date of Consultation: 07/05/17 Referring Provider: Amber Samuels MD Reason for Consultation: abdominal pain PRIMARY DIAGNOSIS: ABDOMINAL PAIN Allergies: Coded Allergies: oxycodone (From OXYCONTIN) (07/04/17) History of Present Illness Chief Complaint: Abdominal pain History of Present Illness: This is a 62-year-old female seen in consultation from Dr. Samuels for evaluation regarding abdominal pain. She presented to the emergency department overnight with a 3 day history of severe pain in the RIGHT upper quadrant. She describes the pain as "sharp and crampy". She states that she has "a bad spasm feel". Severity 5-10 out of 10. The pain has been fairly constant with exacerbations lasting "a few seconds to a few minutes". Evaluation has included a CT scan without contrast that revealed no abnormality in the RIGHT upper quadrant. She is status post cholecystectomy. A tiny umbilical hernia with a small amount of contained fat was noted. Mild diverticulosis was also seen. A 2 cm exophytic lesion of the LEFT kidney was noted and follow-up ultrasound reveals this lesion to be solid. The urology service has been consulted and has seen the patient and plans further evaluation and management as an outpatient. In addition, a LEFT lower lobe density consistent with possible atelectasis versus infiltrate was noted. The patient states that she had a colonoscopy about 5-6 years ago. She states that she is "pretty much due for another colonoscopy now". Past Medical History Reports: hypertension. Denies: CAD. Surgical History Previous Surgery?Y TUBAL ABLASION OVARIAN CYSTS GALL BLADDER Allergies Coded Allergies: oxycodone (From OXYCONTIN) (07/04/17) Medications: Reported Medications DULOXETINE HCL (Duloxetine) 60 MG PO BID #60 Oxycodone 10 Mg\\[id number] (Oxycodone-Acetaminophen 10-325) 1 TAB PO Q4HP PRN CHRONIC PAIN Clonazepam (Clonazepam 0.5MG) 0.5 MG PO QHS TIZANIDINE HCL (Tizanidine) 4 MG NG QHS Olmesartan Medoxomil (Benicar) 20 MG PO DAILY Metoprolol Succinate Xl (Metoprolol ER 25MG) 25 MG PO DAILY Additional medical history: Hyperlipidemia Arthritis Family history Postive for: HTN. Smoking Hx Tobacco: No Smoker: Never Smoker Type: N/A Packs/day: N/A Are you/the child exposed to second-hand smoke: No Alcohol Alcohol: No Hx of Drug Use Drug Use? No Review of Systems Constitutional No: recent weight loss. Skin No: bruising. Immune/allergy No: anaphalaxis. Eyes No: discharge. ENT No: nose bleed. Respiratory No: dyspnea on exertion. Cardiovascular No: palpitations. GI No: diarrhea, dysphagia, hematemeis, hematochezia, melena, nausea, vomitting. (female) No: hematuria. Musculoskeletal No: thoracic pain. Heme No: petechia. Endocrine No: polydipsia. Neurological No: change in LOC. Psychiatric No: anxious. Physical Exam VS/I&O Vital Signs Date Time Temp Pulse Resp B/P Pulse O2 O2 Flow FiO2 Ox Delivery Rate 07/05 161 98.3 78 20 143/73 91 ROOM AIR 07/05 1318 20 07/05 0841 20 07/05 0417 97.8 84 20 140/78 95 ROOM AIR 07/05 0401 20 07/04 2316 104 07/04 231 97.6 104 18 159/78 07/04 231 97.6 104 18 159/78 94 ROOM AIR 07/04 2316 93 ROOM AIR 07/04 2302 98.1 103 16 180/77 93 07/04 2235 107 20 165/81 94 07/04 2136 98.1 105 16 175/84 94 07/04 2045 103 22 154/62 92 07/04 2043 16 07/04 1954 20 07/04 1939 98.0 121 18 186/122 96 I&O 07/05 0700 Intake Total 1600 Output Total Balance 1600 Intake, IV 1600 Patient 76.658 kg Weight Exam General appearance alert, oriented Respiratory no distress Cardiovascular regular rate and rhythm Abdomen soft (+ RUQ TTP) Findings/Data WBC 10.1 Hemoglobin 13.7, hematocrit 41.9, platelet count 220 Alkaline phosphatase 120 (154 upon admission) Bilirubin 1.4 (1.5 on admission) Amylase 38, lipase 115 Plan Plan: Impression: RIGHT upper quadrant pain and tenderness Mild hyperbilirubinemia without obvious biliary dilatation on CT scan LEFT renal lesion (ongoing urology evaluation) Plan: Follow-up further urology evaluation and follow-up CT scan with contrast as per urology recommendations as this will potentially show more detail in and around the RIGHT upper quadrant Hepatitis panel (pending) Follow-up repeat liver function tests (pending) Consider gastroenterology consultation secondary to RIGHT upper quadrant pain and hyperbilirubinemia Esophagogastroduodenoscopy (currently planned for tomorrow) Colonoscopy in the near future (either by the surgical service or by gastroenterology) Continue Hyoscyamine Begin Ativan for improved treatment of possible spasm Begin Toradol at [phone]
[2017-07-05 20:03] VITALS: BP 164/59
[2017-07-05 20:30] VITALS: BP 164/59
--- NOTE | 2017-07-05 21:41 | RADIOLOGY REPORT PS360 ---
CTA ABD/PELVIS HISTORY: Follow-up left renal mass, solid mass on ultrasound 2CM MASS LATERAL ASPECT OF LT KIDNEY ORDERING PHYSICIAN: Crow Samuels MD PATIENT AGE: 62 years TECHNIQUE: Helical acquisition obtained following the intravenous administration of 100 mL of Isovue 370. Immediate and delayed images are obtained. Axial, sagittal, and coronal reformatted images are generated and reviewed. COMPARISON: Ultrasound of the same day, unenhanced CT scan of 07/04/2017 FINDINGS: Vasculature: Aorta: Diffuse atheromatous changes of the aortoiliac vessels. Atherosclerotic calcification is noted at the bronchi of the celiac artery. The SMA has an unremarkable appearance. The PAUL is patent. Mild atheromatous changes involve the renal arteries without stenotic lesion apparent. There is a single artery to each kidney. Prominent collateral vessels are present along the inferior and medial aspect of the spleen. The umbilical vein is recanalized near the region of the portal vein. These findings may be seen with portal hypertension. Atelectatic changes are present in the lung bases slightly greater on the left. Fluid-filled distal esophagus noted consistent with reflux. The liver, spleen, adrenal glands, pancreas, and right kidney have an unremarkable appearance. There has been prior cholecystectomy. There is mild biliary dilatation which may be related to postcholecystectomy state. There is a 2.2 x 2 x 1.7 cm complex left renal mass located in the mid upper pole the left kidney laterally mildly exophytic. This appears solid in nature with early peripheral enhancement. This is suspicious for neoplasm/renal cell carcinoma. The left renal vein is normal in caliber. No large peritoneal adenopathy. There is diverticulosis of the colon without evidence of diverticulitis. The appendix has an unremarkable appearance. No acute bony anomalies. IMPRESSION: 1. Solid 2 cm left renal mass with early peripheral enhancement suspicious for neoplasm/renal cell carcinoma. 2. Other nonacute findings as described above. 3. Atheromatous changes of the aorta and iliac vessels as described above
[2017-07-06] VITALS (7 sets, daily range): BP systolic 123–156; BP diastolic 67–78
--- NOTE | 2017-07-06 07:01 | SURGEON PROGRESS NOTE ---
See Addendum Subjective data Subjective data: Pain essentially unchanged. Objective data Vitals,I&O,and Labs: Vital signs, intake and output,and available lab data for the last 24 hours is as noted below. Vital Signs Date Time Temp Pulse Resp B/P Pulse O2 O2 Flow FiO2 Ox Delivery Rate 07/06 0435 20 07/06 0433 20 07/06 0419 98.3 75 20 149/67 93 ROOM AIR 07/05 2313 18 07/05 2215 18 07/05 2030 98.0 80 18 164/59 92 07/05 2003 98.0 80 18 164/59 92 ROOM AIR 07/05 1648 20 07/05 1645 20 07/05 1619 98.3 78 20 143/73 91 ROOM AIR 07/05 1318 20 07/05 1100 98.3 78 20 143/73 91 07/05 0841 20 07/05 1500 07/05 2300 07/06 0700 Intake Total 600 389 Output Total Balance 600 389 Intake, IV 389 Intake, Oral 600 Laboratory Tests Test Result Date Time Chemistry Sodium (mmoL/L) 139 07/05 950 Potassium (mmoL/L) 4.1 07/05 950 Chloride (mmoL/L) 108 07/05 950 Carbon Dioxide (mmoL/L) 25 07/05 950 BUN (mg/dL) 14 07/05 950 Creatinine (mg/dL) 0.8 07/05 950 Estimated Creat Clear (ML/MIN) 86 07/05 950 Estimated GFR (MDRD) (ML/MIN) 72 07/05 950 Glucose (mg/dL) 89 07/05 950 Calcium (mg/dL) 8.7 07/05 950 Total Bilirubin (mg/dL) 1.4 07/05 950 AST (U/L) 34 07/05 950 ALT (U/L) 38 07/05 950 Alkaline Phosphatase (U/L) 120 07/05 950 Total Protein (gm/dL) 6.6 07/05 950 Albumin (gm/dL) 3.3 07/05 950 Globulin (gm/dL) 3.3 07/05 950 Albumin/Globulin Ratio 1.0 07/05 950 Amylase (U/L) 38 07/05 950 Lipase (U/L) 115 07/05 950 Hematology WBC (K/MM3) 10.1 07/05 612 RBC (M/mm3) 4.83 07/05 612 Hgb (g/dL) 13.7 07/05 612 Hct (%) 41.9 07/05 612 MCV (fl) 86.8 07/05 612 RDW (%) 13.4 07/05 612 Plt Count (K/mm3) 220 07/05 612 MPV (fl) 7.3 07/05 612 Gran % (%) 59.5 07/05 612 Gran # (K/mm3) 6.0 07/05 612 Lymphocytes % (%) 30.7 07/05 612 Monocytes % (%) 6.4 07/05 612 Eosinophils % (%) 2.8 07/05 612 Basophils % (%) 0.6 07/05 612 Lymphocytes # (K/mm3) 3.1 07/05 612 Monocytes # (K/mm3) 0.6 07/05 612 Eosinophils # (K/mm3) 0.3 07/05 612 Basophils # (K/MM3) 0.1 07/05 612 PUBS MCHC (g/dl) 32.9 07/05 612 Immunology MCH (pg) 28.5 07/05 612 Urines Urine Color YELLOW 07/04 2108 Urine Appearance CLEAR 07/04 2108 Urine pH 5.5 07/04 2108 Ur Specific [place] >= 1.030 07/04 2108 Urine Protein (mg/dL) NEGATIVE 07/04 2108 Urine Ketones (mg/dL) NEGATIVE 07/04 2108 Urine Blood TRACE-LYSED 07/04 2108 Urine Nitrate NEGATIVE 07/04 2108 Urine Bilirubin NEGATIVE 07/04 2108 Urine Urobilinogen (E.U./dL) 0.2 07/04 2108 Ur Leukocyte Esterase NEGATIVE 07/04 2108 Urine RBC (rbc/hpf) OCC 07/04 2108 Urine WBC (wbc/hpf) 5-10 07/04 2108 Ur Squamous Epith Cells (#/hpf) 20-50 07/04 2108 Urine Bacteria 2+ 07/04 2108 Hyaline Casts (#/lpf) 20-50 07/04 2108 Urine Glucose NEGATIVE 07/04 2108 Assessment findings Assessment Exam General appearance: alert, awake Cardiovascular: regular rate & rhythm Respiratory: no respiratory distress ABD: soft Patient plan Diagnoses: RUQ pain Hyperbilirubinemia LEFT renal lesion Plan: EGD this AM Additional data: The etiology of the patient's RIGHT upper quadrant pain is still unclear. The possibility of hepatitis, sphincter of Oddi dysfunction, colitis, or numerous other causes must be considered. Further evaluation is pending results of endoscopy. Possible ERCP may be warranted and GI consultation is reasonable. Colonoscopy in the near future as an outpatient is also indicated. f/u pending CT with contrast (although this is for better evaluation of her left renal mass...improved visualization of the RUQ is likely) at 0796
[2017-07-06 07:03] LABS: BILIRUBIN, INDIRECT 0.88 mg/dL (0-0.9)
[2017-07-06 07:34] LABS: HEMOGLOBIN 13.8 g/dL (12.2-16.2); LYMPH % 30.6 % (10-50.0)
--- NOTE | 2017-07-06 08:07 | Operative Note ---
Surgeon/Diagnoses Surgeon/Risk Management Consultant(s) Date of procedure: 07/06/17 Surgeon: MD Renay Luna Diagnoses Pre-op diagnosis: RIGHT upper quadrant pain Gastroesophageal reflux Post-op diagnosis Same as preoperative diagnoses, with the addition of following: Patchy gastritis Likely gastroparesis as evidenced by large amount of food particles within gastric lumen Minimal inflammatory response in small bowel/around ampulla Procedure Procedure Procedure: Esophagogastroduodenoscopy with biopsy Indications: RADHA SANON is a 62 year-old Female with a history of fairly significant RIGHT upper quadrant pain and intermittent gastroesophageal reflux. Recent mild elevation of bilirubin also noted. Findings: Large amount of food particles within gastric lumen consistent with possible gastroparesis Patchy mild to moderate gastritis Minimal inflammatory response in duodenum and around ampulla Procedure Description: After informed consent was obtained, the patient was taken to the endoscopy suite. IV sedation ensued after she was transferred to the LEFT lateral decubitus position. The gastroscope was advanced. The stomach was entered. A fairly large amount of retained food particles was noted within the gastric lumen. Mild to moderate patchy inflammation was also noted. An antral biopsy was obtained. The pylorus was intubated. Minimal inflammatory response of the duodenal mucosa was noted. Some inflammatory response was noted around the ampulla. The gastroscope was carefully removed and the patient was transferred to recovery. EBL (ml): 1 Anesthesia: IV sedation with 5 mg of Versed and 100 g of fentanyl Complications: No immediate Specimens: Antral biopsy Disposition Disposition: Stable to recovery from where she will be transferred back to the floor. Consider UGI/SBFT, as well as gastric emptying study in the near future. Consider gastroenterology consultation. at 0806
--- NOTE | 2017-07-06 08:49 | ACUTE CARE PROGRESS NOTE (QUA) ---
Progress Notes Subjective Date 07/06/17 Time 0846 Note Pt is still having pain but it is better after pain medication. She had an EGD this am that showed a lot of food particles in the stomach. Dr. Wyman thinks she has gastroparesis and some gastritis. He recommends having GI see the patient. Objective Findings Last VS-Temp:98.3 B/P:149/67 Pulse:75 Resp:20 SaO2:98 ROOM AIR Last weight lbs:169 oz:0 K.658 Method:Bed Scales Laboratory Tests 07/06/17 0632: Sodium 138, Potassium 4.2, Chloride 106, Carbon Dioxide 29, BUN 12, Creatinine 1.0, Estimated Creat Clear 69, Estimated GFR (MDRD) 56 L, Glucose 98, Calcium 9.0, Total Bilirubin 1.1 H, Direct Bilirubin 0.22 H, Indirect Bilirubin 0.88, AST 32, ALT 37, Alkaline Phosphatase 128 H, Total Protein 7.2, Albumin 3.6, WBC 9.7, RBC 4.83, Hgb 13.8, Hct 42.9, MCV 88.9, RDW 13.6, Plt Count 253, MPV 7.0 L , Gran % 59.6, Gran # 5.8, Lymphocytes % 30.6, Monocytes % 5.9, Eosinophils % 3.3, Basophils % 0.6, Lymphocytes # 3.0, Monocytes # 0.6, Eosinophils # 0.3, Basophils # 0.1, PUBS MCHC 32.3, MCH 28.7 07/05/17 0950: Sodium 139, Potassium 4.1, Chloride 108 H, Carbon Dioxide 25, BUN 14, Creatinine 0.8, Estimated Creat Clear 86, Estimated GFR (MDRD) 72, Glucose 89, Calcium 8.7, Total Bilirubin 1.4 H, AST 34, ALT 38, Alkaline Phosphatase 120 H , Total Protein 6.6, Albumin 3.3 L, Globulin 3.3 H, Albumin/Globulin Ratio 1.0 L, Amylase 38, Lipase 115 Exam General appearance: alert, awake, no acute distress Cardiovascular: regular rate & rhythm Respiratory: clear to auscultation ABD: non-distended, normal bowel sounds, no rebound, soft, no guarding, ttp in the RUQ Extremities: no peripheral edema Assessment/Plan Problem List 1. Abdominal pain Status: Acute 2. Hyperbilirubinemia Status: Acute 3. Kidney mass Status: Acute 4. Hypertension 5. Hyperlipidemia 6. Chronic pain 7. Gastroparesis 8. Gastritis Plan: Will get an upper GI with small bowel follow through today. This inpt stay is expected to cross 2 MNs from start of care Yes (Laurie Agarwal) Subjective Date 07/06/17 Assessment/Plan Problem List 1. RUQ abdominal pain 2. Hyperbilirubinemia Status: Acute 3. Left renal mass 4. Hypertension 5. Hyperlipidemia 6. Gastroparesis 7. Gastritis 8. Chronic pain Plan: Pt seen and examined. Her EGD was remarkable primarily for retained food raising question of gastroparesis or gastric outlet obstruction. Will add Reglan. Dr. Wyman has recommended UGI with SBFT which has been ordered. Bili and alk phos are trending downward. Pain seems to worse with movement. CT scan with contrast did not elucidate a cause for her RUQ pain but did show the level renal mass to be solid and enhancing but this would not account for her RUQ pain. (Michael Mckeon MD) at 0841 at [id number]
--- NOTE | 2017-07-06 14:00 | RADIOLOGY REPORT PS360 ---
UGI SERIES W/SMALL BOWEL HISTORY: Abdominal pain, residual food within the stomach, evaluate for gastric L obstruction food particles in the stomach ORDERING PHYSICIAN: Crow Samuels MD PATIENT AGE: 62 years Fluoroscopy time: 4 minutes and 35 seconds. FINDINGS: There is a small sliding hiatal hernia. No esophageal mass or obstruction evident. Stomach has an unremarkable appearance. No mass or ulcer. There has been prior cholecystectomy. The duodenal C-loop is unremarkable. There was mild gastroesophageal reflux noted during the exam. No evidence of gastric distention or gastric outlet obstruction. Small bowel has an unremarkable appearance. No evidence of small bowel obstruction or mucosal abnormalities. No filling defects apparent. IMPRESSION: 1. Small sliding hiatal hernia with gastroesophageal reflux. 2. Otherwise negative upper GI and small bowel follow-through. 3. No evidence of gastric outlet obstruction
[2017-07-07 03:47] VITALS: BP 153/74
[2017-07-07 07:10] LABS: BILIRUBIN, INDIRECT 0.92 mg/dL (0-0.9)
[2017-07-07 08:00] VITALS: BP 135/66
--- NOTE | 2017-07-07 08:45 | ACUTE CARE PROGRESS NOTE (QUA) ---
Progress Notes Subjective Date 07/07/17 Time 0845 Note She states her right upper quadrant pain is about the same. It is worse if she tries to move; even repositioning in the bed. As long as she lays still, it is not too bad. She denies nausea and in fact feels hungry. She does feel bloated and has not had a bowel movement. Objective Findings Laboratory Tests 07/07/17 0608: Total Bilirubin 1.1 H, Direct Bilirubin 0.18, Indirect Bilirubin 0.92 H, GGT 39, AST 22, ALT 25, Alkaline Phosphatase 105, Total Protein 5.9 L, Albumin 3.0 L Last VS-Temp:97.8 B/P:135/66 Pulse:85 Resp:16 SaO2:91 ROOM AIR Last weight lbs:169 oz:0 K.658 Method:Bed Scales Exam General appearance: alert, NAD at rest Cardiovascular: regular rate & rhythm Respiratory: clear to auscultation ABD: soft and nondistended. She is very tender in the RUQ but also on the right lower rib cage. BS present Assessment/Plan Problem List 1. RUQ abdominal pain 2. Hyperbilirubinemia Status: Acute 3. Left renal mass 4. Hypertension 5. Hyperlipidemia 6. Gastroparesis 7. Gastritis 8. Chronic pain Plan: Will advance diet. Add Zanaflex tid. Plan for GI consult on Sunday. This inpt stay is expected to cross 2 MNs from start of care Yes at 0939
[2017-07-07 08:59] VITALS: BP 135/66
[2017-07-07 09:41] LABS: HBsAg Screen Negative (Negative); Hep A Ab, IgM Negative (Negative); Hep B Core Ab, IgM Negative (Negative); Hep C Virus Ab <0.1 (0.0-0.9)
[2017-07-07 15:30] VITALS: BP 89/50
[2017-07-07 19:53] VITALS: BP 118/64
[2017-07-08 04:12] VITALS: BP 111/54
[2017-07-08 08:03] VITALS: BP 170/75
--- NOTE | 2017-07-08 08:36 | ACUTE CARE PROGRESS NOTE (QUA) ---
Progress Notes Subjective Date 07/08/17 Time 0835 Note Her right upper quadrant pain has improved but still present when she moves. She has been able to be up about the room and in the chair. She is tolerating her diet. He did have a bowel movement yesterday after the laxative. Objective Findings Last VS-Temp:97.5 B/P:170/75 Pulse:74 Resp:20 SaO2:95 ROOM AIR Last weight lbs:169 oz:0 K.658 Method:Bed Scales Exam General appearance: no distress at rest Eyes: anicteric Cardiovascular: regular rate & rhythm ABD: soft, nondistended. Tender along right subcostal margin Assessment/Plan Problem List 1. RUQ abdominal pain 2. Hyperbilirubinemia Status: Acute 3. Left renal mass 4. Hypertension 5. Hyperlipidemia 6. Gastroparesis 7. Gastritis 8. Chronic pain Patient condition Improving Plan: Continue per orders. GI consult tomorrow This inpt stay is expected to cross 2 MNs from start of care Yes at 0830
[2017-07-08 09:08] VITALS: BP 170/75
[2017-07-08 16:12] VITALS: BP 152/71
[2017-07-08 19:51] VITALS: BP 151/77
[2017-07-09] VITALS (16 sets, daily range): BP systolic 115–178; BP diastolic 66–90
--- NOTE | 2017-07-09 07:56 | SURGEON PROGRESS NOTE ---
Subjective data Subjective data: RADHA SANON is a 62 F .Patient denies complaint of nausea and vomitting.She reports her last pain level as 0 on a 0-10 pain scale. Patient still with some focal right upper quadrant tenderness. Worse with movement. States it is much improved. Assessment findings Assessment Exam General appearance: normal appearance, alert ABD: soft Comment: Focal tenderness right subcostal area. Patient plan Plan: GI Consult at [phone]
--- NOTE | 2017-07-09 08:23 | ACUTE CARE PROGRESS NOTE (QUA) ---
Progress Notes Subjective Date 07/09/17 Time 0818 Note RUQ is better but not resolved. Still hurts mostly with movement. Tolerating diet. Now having loose stools. Objective Findings Vital Signs Result Date Time Pulse Ox 95 07/09 740 B/P 169/81 07/09 740 O2 Delivery ROOM AIR 07/09 740 Temp 97.9 07/09 740 Pulse 82 07/09 07 Resp 20 07/09 740 Last VS-Temp:97.9 B/P:169/81 Pulse:82 Resp:20 SaO2:95 ROOM AIR Last weight lbs:169 oz:0 K.658 Method:Bed Scales Exam General appearance: alert, no acute distress Cardiovascular: regular rate & rhythm Respiratory: clear to auscultation ABD: non-distended, normal bowel sounds, soft, Tender in RUQ and along right subcostal margin Assessment/Plan Problem List 1. RUQ abdominal pain 2. Hyperbilirubinemia Status: Acute 3. Left renal mass 4. Hypertension 5. Hyperlipidemia 6. Gastroparesis 7. Gastritis 8. Chronic pain Plan: Her pain is clearly better but not resolved. She started improving after she was started on Zanaflex suggesting this may be more musculoskeletal. SHe has GI consult scheduled today and if no further inpt testing needed, will plan for discharge later. This inpt stay is expected to cross 2 MNs from start of care Yes at 0822
--- NOTE | 2017-07-09 16:12 | Operative Note ---
ERCP (Leandra) Procedure date: 07/09/17 Date of : 51 Procedure:ERCP Endoscopic retrograde cholangiopancreatography with biliary sphincterotomy and balloon extraction Indications: Mrs. Mendieta is a 62-year-old female with RIGHT upper quadrant abdominal pain. The patient does state that this is very similar to her gallbladder pain and she did have cholecystectomy 5 years ago (Dr. Cash Kern) for cholecystitis. The patient does state that her pain does not radiate into the back. The patient did have blood work showing total bilirubin initially of 1.1 and this did increase over her hospitalization with alkaline phosphatase of 128. The patient did have an upper endoscopy by Dr. Rojas Wyman M.D. which appeared to show some gastric dysmotility/gastroparesis. The patient also had a LEFT renal mass. Her viral hepatitis serologies were negative. The patient does report chronic constipation that alternates with diarrhea (IBSC). She has moderate bloating, gassiness, belching and indigestion. She has moderate stress and anxiety the patient does state that her brother had colon cancer in his 40s. The patient did have colon polyps previously but her last colonoscopy 7 years ago revealed no polyps. Performing Provider: Rashel Mobley MD Referrring Provider: Luis Samuels M.D./Laurie Elizabeth PA-C Sedation: MAC sedation Procedure: Prior to the procedure, a history and physical exam was performed, and patient medications and allergies were reviewed. The risks and benefits of the procedure and the sedation options and risks were discussed with the patient. All questions were answered and informed consent was obtained. Patient identification and proposed procedure were verified by the physician and the nurse. The patient was placed in a left lateral decubitus position. Throughout the procedure, the patient's blood pressure, pulse, and oxygen saturations were monitored continuously. Findings: The scope was passed directly into the upper esophagus and advanced to the second portion of the duodenum. There was some nonerosive gastroesophageal reflux disease. There was evidence of gastric dysmotility with no retained food content. There was marked bile reflux with hemorrhagic gastritis. The duodenal bulb had some peptic duodenitis and there was superficial duodenal ulcer disease of the post bulbar and bulbar duodenum. The ampulla was visualized and both the pancreatic duct and common bile duct were selectively cannulated. A pancreatogram was not performed to prevent post-ERCP pancreatitis but the guidewire extended towards the tail of the gland indicating no strictures. The CBD was selectively cannulated and the cholangiogram did show a mildly dilated common bile duct up to 10 mm in diameter. There was tightness at the sphincter of Oddi with delayed drainage of contrast and bile from the biliary system. The intrahepatic biliary system was normal and there was no evidence of any filling defects. The cystic duct stump was normal. A biliary sphincterotomy was performed and there was excellent extravasation of mostly bile but some minor sludge was identified as yellow specks. The biliary system was swept using a 10- 12 mm sweeping balloon from the hilum and there was passage of delgado bile, contrast and minimal debris. Adjacent to the biliary system and there was barium within the colon and there appeared to be hepatic flexure syndrome based upon the fluoroscopic images with an angulated hepatic flexure. Impressions: 1. Sphincter of Oddi dysfunction with minor slide/minor choledocholithiasis status post biliary sphincterotomy and balloon extraction 2. Possible hepatic flexure syndrome Recommendations: I would recommend Linzess 72 g by mouth every morning, Buspar 10 mg by mouth twice a day and low dose Reglan. I would recommend low fat/soft fiber diet. I would recommend that she follow up in the office (Kesha REAL) in 2-4 weeks for clinical improvement. Based upon her fluoroscopic images (hepatic flexure syndrome of colon), her strong family history of colon cancer (brother with colon cancer in her early 40s) and her lack of screening in 7 years, I would recommend outpatient colonoscopy soon. Complications: None EBL (ml): 0 at 1612
--- NOTE | 2017-07-09 17:11 | RADIOLOGY REPORT PS360 ---
ERCP RADIOLOGIC CLINICAL INDICATION: RUQ PAIN ORDERING PHYSICIAN: Crow Samuels MD PATIENT AGE: 62 years COMPARISON: CT scan of 07/05/2017 FINDINGS: 4 images submitted show contrast injected into the common bile duct slightly prominent. No obvious internal filling defects are evident. No intrahepatic biliary dilatation. Pancreatic duct was not visualized. IMPRESSION: Minimal prominence of the common bile duct not out of context in a patient that has had a prior cholecystectomy. No obvious common duct stones
[2017-07-10] VITALS: BP 176/76
[2017-07-10 04:30] VITALS: BP 151/64
[2017-07-10] MEDS ORDERED: LINZESS72 MCG PO (08:24)
[2017-07-10] MEDS ORDERED: BUSPIRONE HCL10 MG PO (08:25)
--- NOTE | 2017-07-10 08:25 | SURGEON PROGRESS NOTE ---
Subjective data Subjective data: She states that she is "much much better". She underwent ERCP yesterday and states that she "think(s) it helped a lot". Objective data Vitals,I&O,and Labs: Vital signs, intake and output,and available lab data for the last 24 hours is as noted below. Vital Signs Date Time Temp Pulse Resp B/P Pulse O2 O2 Flow FiO2 Ox Delivery Rate 07/10 0430 97.9 72 18 151/64 92 ROOM AIR 07/10 0409 18 07/10 0000 97.8 74 16 176/76 91 07/09 2300 97.8 74 18 178/74 96 07/09 2200 98.4 64 18 174/90 93 07/09 2157 18 07/09 2150 18 07/09 2100 97.8 58 18 172/77 97 07/09 2016 97.9 70 18 137/79 94 ROOM AIR 07/09 2000 98.4 65 18 157/89 96 07/09 1950 97.9 70 18 137/79 94 07/09 1930 97.5 67 18 153/66 96 07/09 1900 97.5 65 18 166/81 98 07/09 1830 97.4 63 18 166/83 97 07/09 1800 97.5 65 18 168/84 97 07/09 1757 18 07/09 1745 97.5 55 16 167/74 96 07/09 1743 18 18 146/73 07/09 1739 68 18 99/59 07/09 1730 97.5 60 16 170/88 93 07/09 1715 97.7 64 16 174/89 97 07/09 1604 97 07/09 1101 20 07/09 0946 20 07/09 0931 97.9 82 20 169/81 95 07/09 1500 07/09 2300 07/10 0700 Intake Total 1583 Output Total Balance 1583 Intake, IV 1583 Output, Stool Patient 80.853 kg 80.854 kg Weight Laboratory Tests Test Result Date Time Chemistry Sodium (mmoL/L) 138 07/06 0632 Potassium (mmoL/L) 4.2 07/06 06 Chloride (mmoL/L) 106 07/06 0632 Carbon Dioxide (mmoL/L) 29 07/06 0632 BUN (mg/dL) 12 07/06 0632 Creatinine (mg/dL) 1.0 07/06 06 Estimated Creat Clear (ML/MIN) 69 07/06 632 Estimated GFR (MDRD) (ML/MIN) 56 07/06 632 Glucose (mg/dL) 98 07/06 632 Calcium (mg/dL) 9.0 07/06 632 Total Bilirubin (mg/dL) 1.1 07/07 608 Direct Bilirubin (mg/dL) 0.18 07/07 608 Indirect Bilirubin (mg/dL) 0.92 07/07 608 GGT (U/L) 39 07/07 608 AST (U/L) 22 07/07 608 ALT (U/L) 25 07/07 608 Alkaline Phosphatase (U/L) 105 07/07 608 Total Protein (gm/dL) 5.9 07/07 608 Albumin (gm/dL) 3.0 07/07 608 Globulin (gm/dL) 3.3 07/05 950 Albumin/Globulin Ratio 1.0 07/05 950 Amylase (U/L) 38 07/05 0950 Lipase (U/L) 115 07/05 0950 Hematology WBC (K/MM3) 9.7 07/06 632 RBC (M/mm3) 4.83 07/06 632 Hgb (g/dL) 13.8 07/06 632 Hct (%) 42.9 07/06 632 MCV (fl) 88.9 07/06 632 RDW (%) 13.6 07/06 632 Plt Count (K/mm3) 253 07/06 632 MPV (fl) 7.0 07/06 632 Gran % (%) 59.6 07/06 632 Gran # (K/mm3) 5.8 07/06 632 Lymphocytes % (%) 30.6 07/06 632 Monocytes % (%) 5.9 07/06 632 Eosinophils % (%) 3.3 07/06 632 Basophils % (%) 0.6 07/06 632 Lymphocytes # (K/mm3) 3.0 07/06 632 Monocytes # (K/mm3) 0.6 07/06 632 Eosinophils # (K/mm3) 0.3 07/06 632 Basophils # (K/MM3) 0.1 07/06 632 PUBS MCHC (g/dl) 32.3 07/06 632 Immunology MCH (pg) 28.7 07/06 632 Serology Hepatitis A IgM Ab Negative 07/05 950 Hep Bs Antigen Negative 07/05 950 Hep B Core IgM Ab Negative 07/05 950 Hepatitis C Antibody <0.1 07/05 950 Urines Urine Color YELLOW 07/04 2108 Urine Appearance CLEAR 07/04 2108 Urine pH 5.5 07/04 2108 Ur Specific [place] >= 1.030 07/04 2108 Urine Protein (mg/dL) NEGATIVE 07/04 2108 Urine Ketones (mg/dL) NEGATIVE 07/04 2108 Urine Blood TRACE-LYSED 07/04 2108 Urine Nitrate NEGATIVE 07/04 2108 Urine Bilirubin NEGATIVE 07/04 2108 Urine Urobilinogen (E.U./dL) 0.2 07/04 2108 Ur Leukocyte Esterase NEGATIVE 07/04 2108 Urine RBC (rbc/hpf) OCC 07/04 2108 Urine WBC (wbc/hpf) 5-10 07/04 2108 Ur Squamous Epith Cells (#/hpf) 20-50 07/04 2108 Urine Bacteria 2+ 07/04 2108 Hyaline Casts (#/lpf) 20-50 07/04 2108 Urine Glucose NEGATIVE 07/04 2108 Assessment findings Assessment Exam General appearance: no acute distress Respiratory: no respiratory distress ABD: soft Patient plan Diagnoses: RUQ pain - possible Sphincter of Oddi Syndrome...possible Hepatic Flexure Syndrome. Overall, improved s/p ERCP Plan: continue care and further management as outpatient Additional data: The patient needs a colonoscopy in the near future. I believe further evaluation and management is best served by the gastroenterology service secondary to possible Sphincter of Oddi Syndrome, recent ERCP, and possible irritable bowel/Hepatic Flexure Syndrome. Outpatient colonoscopy in the near future by gastroenterology will be planned upon follow-up. at 0824
[2017-07-10] MEDS ORDERED: REGLAN 5MG TABLE5 MG PO (08:26)
[2017-07-10 08:30] VITALS: BP 170/81
--- NOTE | 2017-07-10 08:51 | ACUTE CARE PROGRESS NOTE (QUA) ---
Progress Notes Subjective Date 07/10/[address] Mobley consult noted and appeciated. States she is "sore" in RUQ. No nausea or vomiting Objective Findings Last VS-Temp:97.9 B/P:151/64 Pulse:72 Resp:18 SaO2:92 ROOM AIR Last weight lbs:178 oz:4 K.854 Method:Bed Scales Exam General appearance: alert, no acute distress Cardiovascular: regular rate & rhythm Respiratory: clear to auscultation ABD: non-distended, soft, mild RUQ tenderness Assessment/Plan Problem List 1. Sphincter of Oddi dysfunction 2. Hepatic flexure syndrome 3. RUQ abdominal pain 4. Hyperbilirubinemia Status: Acute 5. Left renal mass 6. Hypertension 7. Hyperlipidemia 8. Gastroparesis 9. Gastritis 10. Chronic pain Plan: Discharge home on new meds recommended by Dr. Mobley. She will f/u with GI clinic in 3-4 weeks. Needs outpt c-scope in future. Will also schedule outpt f/u with Dr. Garcia regarding left renal mass. This inpt stay is expected to cross 2 MNs from start of care Yes at 0805
[2017-07-10 10:10] VITALS: BP 170/81
--- NOTE | 2017-07-16 15:43 | DISCHARGE SUMMARY STANDARD ---
Discharge Summary ([facility]CA2) Date of admission: 07/04/17 Date of discharge: 07/10/17 Problem List: 1. Sphincter of Oddi dysfunction 2. Hepatic flexure syndrome 3. RUQ abdominal pain 4. Hyperbilirubinemia 5. Left renal mass 6. Hypertension 7. Hyperlipidemia 8. Gastroparesis 9. Gastritis 10. Chronic pain History of present illness: Mr. Mendieta is a 62-year-old female with a history of hypertension, hyperlipidemia, and arthritis. She stated approximately 3 prior to admission she began having RIGHT upper quadrant abdominal pain. The pain continued to worsen over the next few days and became so bad one night that she presented to the emergency room. She was evaluated in the emergency room and a CT scan revealed nothing acute on the RIGHT side of the abdomen. She did have a mass on the LEFT kidney. She was given pain medication in the emergency room, but her pain was not controlled. She was therefore admitted with intractable pain for further evaluation and treatment. Exam on admission: Vital signs: 1ST Vital Signs Result Date Time Pulse Ox 96 07/04 1939 B/P 186/122 07/04 1939 Temp 98.0 07/04 1939 Pulse 121 07/04 1939 Resp 18 07/04 1939 O2 Delivery ROOM AIR 07/04 2316 Exam: General appearance: alert, awake, appears to be in pain Eyes: EOM's w/normal ROM, PERRLA ENT: mucous membranes moist, nose normal, pharynx normal Neck: non-tender, full range of motion, supple Cardiovascular: regular rate & rhythm Respiratory: clear to auscultation ABD: non-distended, normal bowel sounds, no rebound, soft, ttp and guarding in the RUQ Extremities: no peripheral edema Musculoskeletal: equal muscle strength, motor intact, sensation intact Skin: normal color Neuro: normal mood/affect, oriented, speech clear Hospital Course: Patient was seen by Dr. Wyman and followed by him after admission who performed an EGD with biopsy on 07/06/17 with findings of patchy gastritis, GERD and likely gastroparesis. She was found to have a mass on her left kidney and was also see by Urology, Dr. Garica. He recommended further imaging which was done and FU with him. Dr. James, GI, performed ERCP on 07/09/17 with impressions as follows: 1. Sphincter of Oddi dysfunction with minor slide/minor choledocholithiasis status post biliary sphincterotomy and balloon extraction 2. Possible hepatic flexure syndrome and recommended Linzess 72 mg by mouth every morning, Buspar 10 mg by mouth twice a day and low dose Reglan; low fat/soft fiber diet; follow up in the office in 2-4 weeks for clinical improvement; and based upon her fluoroscopic images (hepatic flexure syndrome of colon), her strong family history of colon cancer (brother with colon cancer in her early 40s) and her lack of screening in 7 years, outpatient colonoscopy soon. The patient made slow progress with resolution of her pain. Zanflex was also added to her medicines which seemed to help the pain with movement in her RUQ. She was initially constipated but then developed diarrhea. Her diet was advanced slowly. On 07/10/17 she had no nausea or vomiting. She had soreness in the RUQ. On this day she was stable to be discharged to home. Laboratory data this visit: 07/05/17 0612: Sodium 140, Potassium 4.0, Chloride 108 H, Carbon Dioxide 25, BUN 15, Creatinine 0.8, Estimated Creat Clear 86, Estimated GFR (MDRD) 72, Glucose 102, Calcium 8.8, WBC 10.1, RBC 4.83, Hgb 13.7, Hct 41.9, MCV 86.8, RDW 13.4, Plt Count 220, MPV 7.3 L, Gran % 59.5, Gran # 6.0, Lymphocytes % 30.7, Monocytes % 6.4, Eosinophils % 2.8, Basophils % 0.6, Lymphocytes # 3.1, Monocytes # 0.6, Eosinophils # 0.3, Basophils # 0.1, PUBS MCHC 32.9, MCH 28.5 07/04/172107: Urine Color YELLOW, Urine Appearance CLEAR, Urine pH 5.5, Ur Specific Beatrice >= 1.030, Urine Protein NEGATIVE, Urine Ketones NEGATIVE, Urine Blood TRACE-LYSED, Urine Nitrate NEGATIVE, Urine Bilirubin NEGATIVE, Urine Urobilinogen 0.2, Ur Leukocyte Esterase NEGATIVE, Urine RBC OCC, Urine WBC 5-10, Ur Squamous Epith Cells 20-50, Urine Bacteria 2+, Hyaline Casts 20-50, Urine Glucose NEGATIVE 07/04/171944: Sodium 138, Potassium 3.9, Chloride 102, Carbon Dioxide 27, BUN 17, Creatinine 1.1 H, Estimated Creat Clear 59, Estimated GFR (MDRD) 50 L, Glucose 116 H, Calcium 9.7, Total Bilirubin 1.5 H, AST 46 H, ALT 49, Alkaline Phosphatase 154 H, Total Protein 8.5 H, Albumin 4.3, Globulin 4.2 H, Albumin/Globulin Ratio 1.0 L, Amylase 49, Lipase 145, WBC 11.8 H, RBC 5.81 H, Hgb 16.4 H, Hct 49.7 H, MCV 85.5, RDW 13.4, Plt Count 300, MPV 7.0 L, Gran % 59.9, Gran # 7.1, Lymphocytes % 31.1, Monocytes % 5.5, Eosinophils % 2.9, Basophils % 0.6, Lymphocytes # 3.7, Monocytes # 0.7, Eosinophils # 0.3, Basophils # 0.1, [facility] MCHC 32.7, MCH 28.0 07/06/17 0632: Sodium 138, Potassium 4.2, Chloride 106, Carbon Dioxide 29, BUN 12, Creatinine 1.0, Estimated Creat Clear 69, Estimated GFR (MDRD) 56 L, Glucose 98, Calcium 9.0, Total Bilirubin 1.1 H, Direct Bilirubin 0.22 H, Indirect Bilirubin 0.88, AST 32, ALT 37, Alkaline Phosphatase 128 H, Total Protein 7.2, Albumin 3.6, WBC 9.7, RBC 4.83, Hgb 13.8, Hct 42.9, MCV 88.9, RDW 13.6, Plt Count 253, MPV 7.0 L , Gran % 59.6, Gran # 5.8, Lymphocytes % 30.6, Monocytes % 5.9, Eosinophils % 3.3, Basophils % 0.6, Lymphocytes # 3.0, Monocytes # 0.6, Eosinophils # 0.3, Basophils # 0.1, PUBS MCHC 32.3, MCH 28.7 07/05/17 0950: Sodium 139, Potassium 4.1, Chloride 108 H, Carbon Dioxide 25, BUN 14, Creatinine 0.8, Estimated Creat Clear 86, Estimated GFR (MDRD) 72, Glucose 89, Calcium 8.7, Total Bilirubin 1.4 H, AST 34, ALT 38, Alkaline Phosphatase 120 H , Total Protein 6.6, Albumin 3.3 L, Globulin 3.3 H, Albumin/Globulin Ratio 1.0 L, Amylase 38, Lipase 115 07/07/17 0608: Total Bilirubin 1.1 H, Direct Bilirubin 0.18, Indirect Bilirubin 0.92 H, GGT 39, AST 22, ALT 25, Alkaline Phosphatase 105, Total Protein 5.9 L, Albumin 3.0 L Last VS-Temp:97.8 B/P:135/66 Pulse:85 Resp:16 SaO2:91 ROOM AIR Last weight lbs:169 oz:0 K.658 Method:Bed Scales Imagin07/05/17 CT of abdomen and pelvis IMPRESSION: 1. 2 cm isodense mass in the lateral aspect of the left kidney more dense than what one would expect for simple cyst. Differential diagnosis includes a complex cyst or neoplasm. Suggest ultrasound for further evaluation. 2. Atelectasis and/or infiltrate within the lingula and left lower lobe 3. Colonic diverticulosis without diverticulitis. 4. Otherwise negative CT abdomen pelvis without contrast 07/05/17 US of kidney IMPRESSION: 2 cm left renal lesion does appear solid. Neoplasm is considered. 07/06/17 UGI with sm bowel follow thru IMPRESSION: 1. Small sliding hiatal hernia with gastroesophageal reflux. 2. Otherwise negative upper GI and small bowel follow-through. 3. No evidence of gastric outlet obstruction 07/09/17 ERCP/Dr. James IMPRESSION: Minimal prominence of the common bile duct not out of context in a patient that has had a prior cholecystectomy. No obvious common duct stones 07/05/17 CTA of abd and pelvis IMPRESSION: 1. Solid 2 cm left renal mass with early peripheral enhancement suspicious for neoplasm/renal cell carcinoma. 2. Other nonacute findings as described above. 3. Atheromatous changes of the aorta and iliac vessels as described above Discharge medications: Continue taking these medications: Oxycodone 10 Mg\[id number] (Oxycodone-Acetaminophen 10-325) 10 MG/325 MG TAB 1 TABLET ORAL EVERY 4 HOURS NEEDED as needed for CHRONIC PAIN Clonazepam (Clonazepam 0.5MG) 0.5 MG TABLET 0.5 MILLIGRAM ORAL AT BEDTIME NIGHTLY TIZANIDINE HCL (Tizanidine) 4 MG TABLET 4 MILLIGRAM NASOGASTRIC TUBE AT BEDTIME NIGHTLY Olmesartan Medoxomil (Benicar) 20 MG TABLET 20 MILLIGRAM ORAL DAILY Metoprolol Succinate Xl (Metoprolol ER 25MG) 25 MG TAB.ER.24H 25 MILLIGRAM ORAL DAILY DULOXETINE HCL (Duloxetine) 60 MG CAPSULE.DR 60 MILLIGRAM ORAL TWICE A DAY Qty = 60 Start taking the following new medications: Linaclotide (Linzess) 72 MCG CAPSULE 72 MICROGRAM ORAL DAILY Qty = 30 No Refills Buspirone Hcl (Buspirone 10MG) 10 MG TABLET 10 MILLIGRAM ORAL TWICE A DAY Qty = 60 No Refills Metoclopramide Hcl (Reglan) 5 MG TABLET 5 MILLIGRAM ORAL BEFORE MEALS Qty = 90 No Refills Disposition: Patient was discharged to home in stable and satisfactory condition. Referred To: Nelson Mobley [facility] [address] [place] [id number] Diagnosis: RUQ abdominal pain Hyperbilirubinemia Referred To: Radha ADRIAN,Kyle [address] [place], [place] [id number] Diagnosis: Kidney mass Follow up: [address] Luis Samuels Activity: Cont Current activity Diet: Continue same diet Discharge to: HOME Agency needed? N [place] [id number]
== END 2017-07-10 10:08 | disposition home or self-care (01) ==
LOC: ER 19:38 → 2ND 22:36
PROVIDERS: Emergency Medicine; Family Medicine; Surgery
PROC: 0DB78ZX Excision of Stomach, Pylorus, Via Natural or Artificial Opening Endoscopic, Diagnostic (ICD-10-PCS; principal; 2017-07-06 08:30)
PROC: 0F798ZZ Dilation of Common Bile Duct, Via Natural or Artificial Opening Endoscopic (ICD-10-PCS; 2017-07-09)
DX: K83.0 Cholangitis (principal); R10.9 Unspecified abdominal pain; E80.6 Other disorders of bilirubin metabolism; N28.89 Other specified disorders of kidney and ureter; I10 Essential (primary) hypertension; E78.5 Hyperlipidemia, unspecified; G89.29 Other chronic pain; K31.84 Gastroparesis; K29.70 Gastritis, unspecified, without bleeding; K59.09 Other constipation; Z87.19 Personal history of other diseases of the digestive system; K76.9 Liver disease, unspecified; Z80.0 Family history of malignant neoplasm of digestive organs; Z82.49 Family history of ischemic heart disease and other diseases of the circulatory system; Z83.3 Family history of diabetes mellitus; Z88.5 Allergy status to narcotic agent; Z79.891 Long term (current) use of opiate analgesic; Z79.899 Other long term (current) drug therapy; Z85.828 Personal history of other malignant neoplasm of skin
CPT/HCPCS: G0378; J2405; Q9967